=== PATIENT | male | born 1990 | race Caucasian/White ===

== ENCOUNTER 2022-08-18 17:43 | Emergency (ER) | payer OTHER ==
[2022-08-18] MEDS ORDERED: Ibuprofen 200 MG TAB ONE (19:16)
== END 2022-08-18 19:35 | disposition home or self-care (01) ==
LOC: CSHERS 17:43
DX: B34.9 Viral infection, unspecified (principal)
CPT/HCPCS: 99283

== ENCOUNTER 2022-11-15 12:28 | Emergency (ER) | payer OTHER ==
[2022-11-15 14:13] LABS: #Eosinphils 0.1 10x3/uL (0.0-0.5); #Monocytes 1.3 10x3/uL (0.0-1.1); #Neutrophils 12.4 10x3/uL (1.5-8.4); %Basophils 0.3 % (0.0-2.0); %Eosinophils 0.3 % (0.0-6.0); %Lymphocytes 8.7 % (18.0-47.0); %Monocytes 8.3 % (0.0-10.0); %Neutrophils 81.9 % (40.0-75.0); Mean Corpuscular HGB CONC 34.2 g/dL (32.0-36.0); Mean Corpuscular Hemoglobin 29.3 pg (27.0-33.0); Mean Corpuscular Volume 85.7 fl (81.2-95.1); Mean Platelet Volume 11.4 fl (7.4-10.4); Platelet Count 240 10x3/uL (150-450); RBC Distribution Width 12.9 % (11.5-14.5); Red Blood Cell (RBC) Count 5.12 10x6/uL (4.32-5.72); White Blood Cell (WBC) Count 15.1 10x3/uL (3.5-10.5)
[2022-11-15] MEDS ORDERED: cefTRIAXone (ROCEPHIN) 2 GM VIAL ONE (14:25)
[2022-11-15 14:26] LABS: ALT (SGPT) 38 U/L (8-55); AST (SGOT) 21 U/L (5-34); Albumin 4.8 g/dL (3.5-5.0); Alkaline Phosphatase 57 U/L (40-110); Anion Gap 16 mmol/L (10-20); BUN (Urea Nitrogen) 13 mg/dL (8.9-20.6); Bilirubin, Total 1.2 mg/dL (0.2-1.2); Calc. Creatinine Clearance 0 mL/min (70-130); Carbon Dioxide 22 mmol/L (22-29); Chloride 102 mmol/L (98-107); Estimated GFR 116; Globulin 2.3 g/dL (2.4-3.5); Glucose 100 mg/dL (70-105); Protein, Total 7.1 g/dL (6.0-8.3); Sodium 136 mmol/L (136-145)
[2022-11-15] MEDS ORDERED: diphenhydrAMINE 50 MG/ML VIAL ONE (14:59)
[2022-11-15] MEDS ORDERED: VANCOMYCIN 2 GRAM/400 ML BAG 2 GM in Premix Bag 1 BAG IVPB SCH (15:15)
== END 2022-11-15 17:14 | disposition short-term general hospital (02) ==
LOC: CSHERS 12:28
DX: M65.9 Synovitis and tenosynovitis, unspecified (principal); I89.1 Lymphangitis
CPT/HCPCS: 36415; 80053; 83605; 85025; 87040; 96365; 96367; 96375; J0696; J1200; J3370